=== PATIENT | female | born 1945 | race Caucasian/White ===

== ENCOUNTER → 2019-10-29 | Outpatient (CLI) | payer MEDICARE ==
[~2019-10-29] MED LIST: ASPIR-LOW81 MG PO; CYCLOBENZAPRINE10 MG PO; CYMBALTA60 MG PO; LISINOPRIL10 MG PO; METFORMIN HCL500 MG PO; NITROSTAT0.4 MG SL; PROAIR HFA INH8.5 GM PO; PROBIOTIC PO; RANITIDINE HCL150 MG PO; RESTFUL LEGS PO; ULTRAM 50MG50 MG PO
--- NOTE | 2019-10-29 13:36 | Diagnostic Imaging Report ---
EXAM: CT Chest WITHOUT contrast INDICATION: ^[id number] ^1250 ^LT UPPER LUNG LESION/NODULE COMPARISON: Chest radiograph 03/14/2015 TECHNIQUE: Chest was scanned utilizing a multidetector helical scanner from the lung apex through the level of the adrenal glands without administration of IV contrast. Absence of intravenous contrast decreases sensitivity for detection of lymphadenopathy and vascular pathology. Coronal and sagittal reformations were obtained. Routine protocol was performed. IV CONTRAST: None COMPLICATIONS: None RADIATION DOSE: Total DLP: 425 mGy*cm Estimated effective dose: (DLP x 0.014 x size factor) mSv CTDIvol has been reviewed. It is below the limits set by the Radiation Protocol Committee (RPC). Dose modulation, iterative reconstruction, and/or weight based adjustment of the mA/kV was utilized to reduce the radiation dose to as low as reasonably achievable. FINDINGS: LINES/ TUBES: None. LUNGS AND AIRWAYS: Moderate upper lobe predominant ulnar emphysematous changes, mostly paraseptal. No concerning pulmonary mass, nodule, or consolidation. Nonspecific 2 mm right upper lobe pulmonary nodule (image 57). Nonspecific 2 mm subpleural left lower lobe nodule (image 49). The airways are clear. PLEURA: The pleural spaces are clear. HEART AND MEDIASTINUM: The thyroid gland is normal. No mediastinal, hilar or axillary lymphadenopathy. The heart is normal in size. There is no pericardial effusion. Advanced atherosclerotic calcifications of the thoracic aorta and coronary arteries. UPPER ABDOMEN: Unremarkable. BONES: The visualized bony thorax is within normal limits. SOFT TISSUES: Unremarkable. IMPRESSION: 1. No acute thoracic abnormality. 2. Pulmonary emphysema. Signed by: Roberto Carlos Plata MD on 10/29/2019 1:33 PM
== END ==
LOC: CT 12:21
PROVIDERS: ATTEND Family Medicine
DX: R91.8 Other nonspecific abnormal finding of lung field (principal)
CPT/HCPCS: 71250